=== PATIENT | male | born 1985 | race Caucasian/White ===

== ENCOUNTER 2020-11-21 10:01 | Emergency (ER) | payer OTHER ==
[~2020-11-21] VITALS: Ht 182.9 cm; Wt 87.1 kg
[2020-11-21] MEDS ORDERED: BUPRENORPHINE-1 EACH (11:40)
[2020-11-21] MEDS ORDERED: EPINEPHRIN0.3 MG/0.1 (11:40)
== END 2020-11-21 13:40 | disposition home or self-care (01) ==
LOC: ER 10:01
DX: S56.311A Strain of extensor or abductor muscles, fascia and tendons of right thumb at forearm level, initial encounter (principal); J45.909 Unspecified asthma, uncomplicated; Z88.2 Allergy status to sulfonamides; Z79.899 Other long term (current) drug therapy; X50.9XXA Other and unspecified overexertion or strenuous movements or postures, initial encounter
CPT/HCPCS: 29125; 73140; 99283-25